=== PATIENT | female | born 1930 | race Caucasian/White ===

== ENCOUNTER 2017-02-14 08:13 | Inpatient (IN) ==
[2017-02-14] MEDS ORDERED: ONDANSETRON 4 MG/2 ML VIAL IV STA ×2 (08:39→11:22)
[2017-02-14] MEDS ORDERED: PANTOPRAZOLE 40 MG VIAL IV STA (08:39)
--- NOTE | 2017-02-14 08:42 | Emergency Department Note ---
Nany Chavez Gwan, am scribing for, and in the presence of, Pao Cardona DO 08:38 . IBrendan Debra, DO, personally performed the services described in this documentation, ascribed by Jassi Ayon in my presence, and it is both accurate and complete 841 . Arrival - Arrival Chief Complaint: GI Bleed/Rectal Stated Complaint: gi bleed ED Nursing Triage Note: c/o n/v onset saturday. upper gi bleed started this am Mode of Arrival: Stretcher Limitations: No Limitations Source: Patient, Old Records Reviewed, RN Notes Reviewed - History of Present Illness HPI Narrative: Pt is a 86 y/o female, with a hx of HTN, NIDDM, who presents to the ED with a c /o N/V with an onset 1 week ago. Patient continued to note that her sxs have began to worsen with in the last 2 days and that she has been having a bloody stool with onset this morning. This prompted her visit to the ED for further evaluation. Onset (ago): day(s) Consistency: constant Severity: moderate Allergies/Adverse Reactions: Allergies Allergy/AdvReac Type Severity Reaction Status Date / Time No Known Allergies Allergy Unverified 02/14/17 08:22 Review of System - Review of System 12 point system: reviewed and no additional remarkable complaints except as stated - Review of System Constitutional: Absent: chills, fever Eyes: Absent: discharge, vision change Head/Ears/Nose/Throat: Absent: earache, nasal drainage Respiratory: Absent: cough, wheezing Cardiovascular: Absent: chest pain Gastrointestinal: Present: as per HPI, nausea, vomiting, other (bloody stool) Genitourinary female: Absent: dysuria Musculoskeletal: Absent: arm pain, back pain, lower back pain, leg pain, neck pain Skin: Absent: rash, lesions Medical,Surgical,& Family Hx - Medical History Cardio: History of: Hypertension Endocrine: History of: Diabetes Mellitus (NIDDM) - Social History Smoking Status: Never smoker Frequency of Alcohol Use: None Type of Drug Use: None Exam Vital Signs: Vital Signs Temperature 98.0 F 02/14/17 08:14 Pulse Rate 114 H 02/14/17 08:14 Respiratory Rate 18 02/14/17 08:14 Blood Pressure 183/105 02/14/17 08:14 O2 Sat by Pulse Oximetry 98 04/27/17 08:14 - General General appearance: alert, in no apparent distress - Head Head exam: Present: atraumatic, normocephalic - Eye Eye exam: Present: normal appearance, PERRL, EOMI - ENT ENT exam: Present: normal oropharynx, mucous membranes moist, TM's normal bilaterally, normal external ear exam - Neck Neck exam: Present: full ROM, trachea midline. Absent: tenderness, meningismus , lymphadenopathy, thyromegaly - Chest Chest inspection: Present: symmetric chest wall rise. Absent: tenderness - Respiratory Respiratory exam: Present: normal lung sounds bilaterally. Absent: respiratory distress - Cardiovascular Cardiovascular exam: Present: murmur (Grade 1 systolic injection murmur) - Abdominal Exam Abdominal exam: Present: distention - Extremities Exam Extremities exam: Present: full ROM. Absent: tenderness, pedal edema, calf tenderness - Back Exam Back exam: Present: full ROM. Absent: tenderness - Neurological Exam Neurological exam: Present: alert, oriented X3, CN II-XII intact. Absent: motor sensory deficit - Psychiatric Psychiatric exam: Present: normal affect, normal mood - Skin Skin exam: Present: warm, dry, intact, normal color Results - Labs CBC & BMP: 02/14/17 09:30 02/14/17 09:30 Lab Results: I have reviewed the patients labs Labs: Laboratory Tests 02/14/17 02/14/17 08:56 09:18 b-Hydroxybutyric mmol/L 0.4 Urine pH 6.0 Ur Specific [place] 1.010 Urine Glucose (UA) >=500 Urine Ketones 5 Urine Urobilinogen < 2.0 H Urine RBC 1 Urine WBC <1 Ur Squamous Epith Cells Occasional Laboratory Tests 02/14/17 09:30 WBC 9.0 RBC 3.50 L Hgb 10.1 L Hct 31.9 L MCHC 31.7 L Plt Count 107 L Neut % (Auto) 76.1 H Lymph % (Auto) 17.0 L Laboratory Tests 02/14/17 02/14/17 09:30 09:30 Sodium 135 L Potassium 5.1 Chloride 104 Carbon Dioxide 21 Anion Gap 15.1 H BUN 47 H Creatinine 1.30 H BUN/Creatinine Ratio 36.00 H Glucose 267 H Total Bilirubin 1.10 H Albumin 3.2 L Globulin 4.1 H Albumin/Globulin Ratio 0.7 L Lipase 238.0 Blood Type A POSITIVE Antibody Screen Negative Laboratory Tests 02/14/17 09:30 Total Creatine Kinase 196 H CK-MB (CK-2) 2.4 Troponin I 0.121 H - Diagnostic Findings Procedure: Chest x-ray: report reviewed by me (No acute cardiopulmonary process is identified. ), CT Abdomen and Pelvis: report reviewed by me (1. Any luminal extravasation is not possible to determine secondary to lack of intravenous contrast. 2. Sigmoid diverticulosis without specific features of diverticulitis. Bowel wall in this segment of bowel is not well visulaized. 3. Bilateral renal cyst are suggested. Ultrasound will be useful for confirmation. 4. Cirrhotic feature of the liver demonstrated. 5. Coronary artery calcifications are prosent. )
[2017-02-14] MEDS ORDERED: ONDANSETRON 4 MG/2 ML VIAL ONE ×2 (08:54→11:21)
[2017-02-14 09:08] LABS: Apearance,Urine CLEAR (Clear); Bilirubin,Urine Negative (Negative); Blood, Urine Negative (Negative); Glucose,Urine (UA) >=500 mg/dL (Negative); Ketones,Urine 5 mg/dL (Negative); Nitrite,Urine Negative (Negative); Protein,Urine Negative; RBC,Urine 1 /HPF (0-4); Squamous Epithelial Cell,Urine Occasional /HPF (0-10); Urine Color Straw (Yellow); Urine Urobilinogen < 2.0 EU/DL (0.2-1.0); WBC,Urine <1 /HPF (0-6)
[2017-02-14] MEDS ORDERED: SODIUM CHLORIDE 0.9% 1,000 ML IV STA ×2 (09:19→11:20)
[2017-02-14] MEDS ORDERED: PANTOPRAZOLE 40 MG VIAL IV ONE (09:33)
--- NOTE | 2017-02-14 09:39 | EKG Report ---
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
[2017-02-14 09:42] LABS: Basophils % 0.4 % (0.0-0.8); Eosinophils % 0.1 % (0.00-10.9); Hematocrit 31.9 VOL% (35.7-47.0); Hemoglobin 10.1 GM/DL (12.0-16.0); Immature Granulocytes % 0.6 %; Immature Granulocytes Absolute 0.05 #; Lymphocytes # 1.5 10*3/uL (1.4-4.0); Mean Corpuscular HGB Conc 31.7 GM/DL (32-36); Mean Corpuscular Hemoglobin 29 PG (27-34); Mean Corpuscular Volume 91.1 FL (87-102); Monocytes # 0.5 10*3/uL (0.11-0.8); Monocytes % 5.8 % (1.7-12.7); Neutrophils # 6.9 10*3/uL (1.4-7.4); Neutrophils % 76.1 % (38.7-73.9); Platelet Count 107 T/CUMM (130-400); Red Cell Distribution Width 14.6 % (9.3-17.3)
[2017-02-14 10:12] LABS: Albumin 3.2 G/DL (3.4-5.0); Bilirubin,Total 1.1 MG/DL (0.2-1.0); Calcium 9.3 MG/DL (8.5-10.1); Osmolality,Calculated 290.1 MOS/KG (273-304); Potassium 5.1 MMOL/L (3.5-5.1); Total Protein 7.3 G/DL (6.4-8.3)
--- NOTE | 2017-02-14 10:22 | XRay Report ---
Referring Physician: Pao Cardona DO Exam: XR chest 1V portable Date: February 14, 2017 at 10:00 AM Reason: Shortness of breath Comparison: None Findings: The cardiac silhouette is normal in size. No focal consolidation, pneumothorax or pleural effusion is identified. No acute osseous process is seen. Impression: No acute cardiopulmonary process is identified. PROCEDURE INTERPRETED AT [facility] DEPARTMENT OF RADIOLOGY Final Report Signed by: Dr. Laney Lopez
[2017-02-14] MEDS ORDERED: LABETALOL 20 MG/4 ML SYRINGE IV STA (10:54)
[2017-02-14 10:55] LABS: Troponin I Only 0.121 NG/ML (0.00-0.045)
[2017-02-14] MEDS ORDERED: LABETALOL 20 MG/4 ML SYRINGE IV ONE (10:58)
--- NOTE | 2017-02-14 11:10 | CT Report ---
CT abdomen pelvis wo con Indication: GI bleed. Coffee-ground emesis. Comparison: None. Technique: CT of the abdomen and pelvis was performed without administration of intravenous contrast. The CT examination was performed using one or more of the following dose reduction techniques: Automatic exposure control, adjustment of the mA and kV according to patient size, use of acute or iterative reconstruction techniques. Findings: Incomplete evaluation of the abdomen secondary to lack of intravenous contrast. Assessment of bowel wall as well as evaluation for possible intraluminal extravasation is not possible. No acute findings are noted within the lower chest. Coronary artery calcifications are present. Calcification of the mitral valve annulus is moderate. Lower esophagus is grossly unremarkable. No gallstones are present. The liver demonstrates a nodular margin with no focal lesions clearly demonstrated. Spleen is grossly normal in size. Noncontrast enhanced appearance of the pancreas, adrenal glands, and kidneys demonstrate no acute findings. Each kidney contains a large hypoattenuating round to slightly oval lesions measuring up to 5.8 cm within the posterior right kidney and up to 7 cm transverse dimension anterior left kidney. These could reflect renal cysts. Further evaluation is limited secondary to lack of intravenous contrast. Diffuse intimal calcification of the aorta and iliac arteries is demonstrated. Numerous sigmoid diverticula are present. Urinary bladder is decompressed by Kovacs catheter. Dynamic compression screw within the left femoral neck is present. Otherwise, the imaged structures of the lower chest, liver, spleen, pancreas, adrenal glands, kidneys, aorta, inferior vena cava, stomach, bowel, and intrapelvic contents as well as bony structures soft tissues and musculature the body wall demonstrate no evidence of significant pathology. Impression: 1. Any luminal extravasation is not possible to determine secondary to lack of intravenous contrast. 2. Sigmoid diverticulosis without specific features of diverticulitis. Bowel wall in this segment of bowel is not well visualized. 3. Bilateral renal cysts are suggested. Ultrasound will be useful for confirmation. 4. Cirrhotic features of the liver demonstrated. 5. Coronary artery calcifications are present. 02/14/2017 11:03 AM PROCEDURE INTERPRETED AT [facility] DEPARTMENT OF RADIOLOGY Final Report Signed by: Dr. Marino Collins
[2017-02-14] MEDS ORDERED: HYDROmorphone 2 MG/1 ML VIAL IV STA (11:19)
[2017-02-14] MEDS ORDERED: HYDROmorphone 2 MG/1 ML VIAL ONE (11:22)
[2017-02-14] MEDS ORDERED: ZALEPLON 5 MG CAPSULE PO PRN (11:39)
[2017-02-14] MEDS ORDERED: ACETAMINOPHEN 325 MG TABLET PO PRN (11:39)
[2017-02-14] MEDS ORDERED: ONDANSETRON 4 MG/2 ML VIAL IV PRN (11:39)
--- NOTE | 2017-02-14 12:04 | Hospitalist History & Physical ---
<Boris Carrillo - Last Filed: 02/14/17 12:50> Assessment and Plan (1) GI bleed Status: Acute Assessment and plan: Admitted to monitored bed. IV fluids. Serial H and Hs. PT/INR repeat CBC in a.m. abdominal x-ray. consult GI. Continue to monitor patient Current Visit: Yes (2) Diabetes Status: Acute Assessment and plan: Accu-Cheks before meals at bedtime. Sliding scale insulin. Check A1c in a.m. clear liquid diet now but advance to diabetic as tolerated. Current Visit: Yes (3) Hypertension Status: Acute Assessment and plan: Restart home medications. Current Visit: Yes (4) Dehydration Status: Acute Assessment and plan: Gentle hydration. Current Visit: Yes History of Present Illness Chief complaint: hemataemesis History of present illness: Ms. Schaefer is a 86 year old female with a history of htn, cad, irregular heart rhythm, dm, anemia, gerd, and recurrent UTIs that presents to the ED via EMS with complaints of abdominal pain with nausea and vomiting. Pt is a poor historian and family is present at bedside. Pt. states that yesterday after dinner she began to experience abdominal pain. Patient states that she also began to feel sick on her stomach and vomited Patient states that the vomiting alarmed her because she normally does not vomit at all. She also states that the vomit had a foul odor and appeared to be very dark in color similar to coffee grounds. Patient's is at bedside and states that he saw the vomit. The patient went to be bed when she woke up this morning and began to vomit again and she knew that she needed to come in for evaluation. This morning she states that while at home the blood was bright red. This was confirmed by her and son/[id number] who are present at the bedside. The patient reports 4 total episodes of vomiting since yesterday evening. Patient denies fever, chills, hematuria, melena, or hematochezia. Pt' s did state that the pt was seen 4-[address] Hicks and pt had to have blood work drawn and low levels were discovered. He also stated that the patient had to have a procedure by Dr. Atkinson where "a mirror was stuck down her throat." Pt. is also seen by Dr. Benjamin Walsh of [facility]. Pt. stated that recent EKG changes were noted and Ranexa was stopped. The patient is not in any apparent distress in ED. H&H is 10.1/31.9. Patient will be admitted to the hospitalist service for further eval. GI will be consulted to help coordinate care. Home Medications Medication Instructions Recorded Confirmed Type Aspirin [Ecotrin] 81 mg PO QAM 02/14/17 02/14/17 History Docusate/Senna 50-8.6 [Senokot S] 1 tablet PO BEDTIME 02/14/17 02/14/17 History HYDROcodone/ACETAMIN 7.5-325 1 tablet PO TID PRN 02/14/17 02/14/17 History [[place] 7.5-325] Isosorbide Mononitrate [Isosorbide 60 mg PO QAM 02/14/17 02/14/17 History Mononitrate ER] Losartan/Hydrochlorothiazide 1 each PO DAILY 02/14/17 02/14/17 History [Losartan-Hctz 100-25 mg Tab] Metformin HCl 500 mg PO BID 02/14/17 02/14/17 History Metoprolol Tartrate Tab [Lopressor 50 mg PO BID 02/14/17 02/14/17 History Tab] Primidone 50 mg PO BEDTIME 02/14/17 02/14/17 History glipiZIDE [Glipizide] 10 mg PO BID 02/14/17 02/14/17 History Allergies Allergy/AdvReac Type Severity Reaction Status Date / Time No Known Allergies Allergy Unverified 02/14/17 08:22 Medical,Surgical,& Family Hx - Medical History Cardio: History of: Hypertension Psychological: No history of: Depression Endocrine: History of: Diabetes Mellitus (NIDDM) Genitourinary: History of: Recurring Urinary Tract Infections Gastrointestinal: History of: GERD Hematology: History of: Anemia Other: No history of: Cancer - Social History Smoking Status: Never smoker Frequency of Alcohol Use: None Type of Drug Use: None Marital Status: Lives With:: Spouse Functional capacity: uses cane/walker - Constitutional Constitutional: Present: fatigue, weakness - EENT Eyes: Absent: loss of vision Ears: Absent: decreased hearing Nose, mouth and throat: Absent: dysphagia, headache(s) - Cardiovascular Cardiovascular: Present: dyspnea on exertion. Absent: chest pain at rest - Respiratory Respiratory: Present: dyspnea on exertion. Absent: cough - Gastrointestinal Gastrointestinal: Present: abdominal pain, coffee ground emesis, nausea, vomiting. Absent: change in bowel habits, melena - Genitourinary Genitourinary: Absent: abnormal vaginal bleeding, difficulty urinating - Musculoskeletal Musculoskeletal: Absent: limited range of motion, muscle cramps - Neurological Neurological: Present: dizziness. Absent: confusion - Psychiatric Psychiatric: Absent: anxiety, confusion Exam - Constitutional Vitals: Period Temp Pulse Resp BP Sys/Morel Pulse Ox Last 24 Hr 98.0 F-98.0 F 114-114 18-18 183-183/105-105 98 General appearance: no acute distress, over weight - Head Head exam: Present: normal inspection, normocephalic - Eye Eye exam: Present: EOMI. Absent: scleral icterus Pupils: Present: MICHAELA. Absent: fixed - Neck Neck exam: Present: normal inspection. Absent: tenderness - Respiratory Respiratory exam: Present: clear to auscultation bilaterally. Absent: wheezes - Cardiovascular Cardiovascular exam: Present: tachycardia. Absent: systolic murmur - GI/Abdominal GI/Abdominal exam: Present: normal bowel sounds, distended, tenderness (lower abdomen), soft - Extremities Exam Extremities exam: Present: normal capillary refill, full ROM. Absent: edema - Neurological Exam Neurological exam: Present: alert, oriented X3 - Psychiatric Psychiatric exam: Present: normal affect, normal mood - Skin Skin exam: Present: normal color, warm, dry Results - Labs CBC & BMP: 02/14/17 09:30 02/14/17 09:30 Lab Results: I have reviewed the past 24 hour labs - EKG EKG shows: tachycardia <White,Paula R - Last Filed: 02/14/17 13:44> Assessment and Plan - Time spent with patient Time spent with patient: (Nothing acute) (1) GI bleed Status: Acute Assessment and plan: CT of abdomen shows sigmoid diverticulosis and some evidence of cirrhosis. Continue serial hemoglobin. IV Protonix and hold aspirin. Check coags due to cirrhosis Current Visit: Yes (2) Dehydration Status: Acute Assessment and plan: Gentle hydration with normal saline Current Visit: Yes (3) Diabetes Status: Acute Assessment and plan: Hold glipizide for now. Clear liquids Current Visit: Yes (4) Hypertension Status: Acute Assessment and plan: Start Coreg 6.25 mg p.o. twice daily, continue isosorbide mononitrate, hold diuretic for now Current Visit: Yes (5) Confusion Status: Acute Assessment and plan: Patient has evidence of cirrhosis on her CT. Check ammonia level. Current Visit: Yes History of Present Illness History of present illness: Ms. Schaefer is a 86 year old female seen and examined. History and physical reviewed and edited. In speaking with the he reports some dark tarry stools. With respect to her confusion he said she has been confused probably for the last 6 months. Medical,Surgical,& Family Hx - Surgical History Abdominal Surgeries: Surgical HX of: Colonoscopy Reproductive Surgeries: Surgical HX of;: Hysterectomy Orthopedic Surgeries: Surgical HX of;: Orthopedic Surgery - Family History Family History: Reports;: Family Diabetes Denies;: Family Cancer, Family Heart Disease, Family Stroke - Neurological Neurological: Absent: syncope - Psychiatric Psychiatric: Present: confusion. Absent: depression - Endocrine Endocrine: Present: fatigue. Absent: cold intolerance, heat intolerance - Hematologic/Lymphatic Hematologic/Lymphatic: Absent: easy bleeding, easy bruising Exam - Constitutional Vitals: Period Temp Pulse Resp BP Sys/Morel Pulse Ox Last 24 Hr 104 18 128/60 99 - ENT ENT exam: Present: normal exam, normal external ear exam - Neurological Exam Neurological exam: Present: reflexes normal. Absent: motor sensory deficit Results - Labs CBC & BMP: 02/14/17 09:30 02/14/17 09:30 - Diagnostic Findings Procedure: Chest x-ray: report reviewed by me (Nothing acute), CT Abdomen and Pelvis: report reviewed by me (sigmoid divert, cirrhosis )
--- NOTE | 2017-02-14 12:19 | Gastrointestinal Consult Note ---
Assessment and Plan (1) GI bleed Status: Acute Assessment and plan: 02/14-onset of dark coffee-ground emesis 3 on yesterday with associated abdominal pain, with no prior history of GI bleed or peptic ulcer disease. Prior endoscopy done at [place]. History of anemia with chronic iron replacement therapy. Check stool for occult blood, monitor serial H&H. Plan and addendum to follow by Dr Pearson. Current Visit: Yes History of Present Illness Chief complaint: GI bleed History of present illness: Ms. Schaefer is a 86 year old female who presented to the hospital with onset of coffee-ground emesis. Patient is a poor historian however her son and are at bedside and provide history. Patient is reported to not feel very well on yesterday and shortly after eating lunch she went to lay down. Later that evening and she came and told her that she had just vomited up a large amount of dark emesis. She continued not to feel well later that evening and skip supper as well. Her became concerned and brought her to the emergency room for further evaluation. Upon admission, patient had another episode of coffee-ground emesis. Patient is also reported to have recently had some dark tarry stools. She has noted to be on iron therapy in the past however patient's states he has decreased the amount of this that she takes due to it does cause constipation. He states that despite not taking this often her stool still remained dark. She denies any abdominal pain on yesterday as well as at this time. She denies any recent weight loss, fever or chills. Patient has no prior history of GI bleeding or peptic ulcer disease in the past. No reported NSAID use in the past. Patient has been followed in the past at [facility] by Dr. Francis where her last endoscopy was done. Patient's spouse states that her last endoscopy was in 2009 however he cannot recall any specific findings from this. He does state that she has had a colonoscopy attempted twice in the past several years without success but he cannot recall as to why. She also has a reported history of anemia and has been followed by Dr. Eubanks for this. Her last reported blood transfusion was in 2009. She takes a daily baby aspirin however no anticoagulants. She has a history of diabetes which patient's spouse states is fairly controlled. On admission, she had a CT of the abdomen without contrast done with findings of sigmoid diverticulosis with poorly visualized bowel wall and cirrhotic features of her liver. Hemoglobin is currently 10.1. BUN/creatinine ratio is 36. Patient's spouse states that she was told recently that she may have had a "light heart attack ". EKG pending at present. Home Medications Medication Instructions Recorded Confirmed Type Aspirin [Ecotrin] 81 mg PO QAM 02/14/17 02/14/17 History Docusate/Senna 50-8.6 [Senokot S] 1 tablet PO BEDTIME 02/14/17 02/14/17 History HYDROcodone/ACETAMIN 7.5-325 1 tablet PO TID PRN 02/14/17 02/14/17 History [[place] 7.5-325] Isosorbide Mononitrate [Isosorbide 60 mg PO QAM 02/14/17 02/14/17 History Mononitrate ER] Losartan/Hydrochlorothiazide 1 each PO DAILY 02/14/17 02/14/17 History [Losartan-Hctz 100-25 mg Tab] Metformin HCl 500 mg PO BID 02/14/17 02/14/17 History Metoprolol Tartrate Tab [Lopressor 50 mg PO BID 02/14/17 02/14/17 History Tab] Primidone 50 mg PO BEDTIME 02/14/17 02/14/17 History glipiZIDE [Glipizide] 10 mg PO BID 02/14/17 02/14/17 History Allergies Allergy/AdvReac Type Severity Reaction Status Date / Time No Known Allergies Allergy Unverified 02/14/17 08:22 Medical,Surgical,& Family Hx - Medical History Cardio: History of: Hypertension Psychological: No history of: Depression Endocrine: History of: Diabetes Mellitus (NIDDM) Gastrointestinal: History of: GERD Hematology: History of: Anemia - Social History Smoking Status: Never smoker Frequency of Alcohol Use: None Type of Drug Use: None 12 point system: reviewed and no additional remarkable complaints except as stated - Constitutional Constitutional: Present: as per HPI - EENT Eyes: Present: as per HPI Ears: Present: as per HPI Nose, mouth and throat: Present: as per HPI - Cardiovascular Cardiovascular: Present: as per HPI - Respiratory Respiratory: Present: as per HPI - Gastrointestinal Gastrointestinal: Present: as per HPI, melena, nausea, vomiting - Genitourinary Genitourinary: Present: as per HPI - Musculoskeletal Musculoskeletal: Present: as per HPI - Neurological Neurological: Present: as per HPI - Psychiatric Psychiatric: Present: as per HPI - Endocrine Endocrine: Present: as per HPI - Hematologic/Lymphatic Hematologic/Lymphatic: Present: as per HPI Exam - Constitutional Vitals: Period Temp Pulse Resp BP Sys/Morel Pulse Ox Last 24 Hr 98.0 F-98.0 F 114-114 18-18 183-183/105-105 98 General appearance: normal weight, no acute distress - Head Head exam: Present: normal inspection, normocephalic - Eye Eye exam: Present: other (Lids and conjunctive are unremarkable). Absent: scleral icterus - ENT ENT exam: Present: normal exam, normal oropharynx - Neck Neck exam: Present: normal inspection - Respiratory Respiratory exam: Present: clear to auscultation bilaterally. Absent: rales, rhonchi, wheezes - Cardiovascular Cardiovascular exam: Present: regular rate and rhythm. Absent: diastolic murmur , JVD, systolic murmur - GI/Abdominal GI/Abdominal exam: Present: normal bowel sounds, soft. Absent: ascites, distended, mass, organomegaly, tenderness - Extremities Exam Extremities exam: Present: normal inspection, full ROM - Back Exam Back exam: Present: normal inspection - Neurological Exam Neurological exam: Present: alert, oriented X3 - Psychiatric Psychiatric exam: Present: normal affect, normal mood - Skin Skin exam: Present: normal color, warm, dry Results - Labs CBC & BMP: 02/14/17 09:30 02/14/17 09:30 Lab Results: I have reviewed the past 24 hour labs - Diagnostic Findings Procedure: CT Abdomen and Pelvis: report reviewed by me
[2017-02-14] MEDS ORDERED: GLUCAGON 1 MG VIAL IM PRN (13:12)
[2017-02-14] MEDS ORDERED: DEXTROSE 50% 25 GM/50 ML VIAL IV PRN (13:12)
[2017-02-14 13:54] LABS: INR 1.2; PT Patient Result 12.6 SECS; Partial Thromboplastin Time 25.9 SECS (0-40)
[2017-02-14] MEDS ORDERED: SODIUM CHLORIDE 0.9% 1,000 ML IV SCH (14:00)
[2017-02-14] MEDS: CARVEDILOL 6.25 MG TABLET PO SCH ×2 (14:05→21:03)
[2017-02-14] MEDS: ISOSORBIDE MONONITRATE 60 MG TABLET PO SCH (14:05)
[2017-02-14 14:11] LABS: Hematocrit 31.4 VOL% (35.7-47.0); Hemoglobin 9.7 GM/DL (12.0-16.0)
[2017-02-14] MEDS: SODIUM CHLORIDE 0.9% 1,000 ML IV SCH (14:12)
[2017-02-14] MEDS: INSULIN LISPRO 100 UNIT/ML SUBCUT SCH ×2 (17:02→21:03)
[2017-02-14 19:43] LABS: Hematocrit 24.5 VOL% (35.7-47.0); Hemoglobin 7.8 GM/DL (12.0-16.0)
[2017-02-14] MEDS: PANTOPRAZOLE 40 MG VIAL IV SCH (21:02)
[2017-02-15 01:56] LABS: Calcium 8.7 MG/DL (8.5-10.1); Magnesium 1.4 MG/DL (1.8-2.4); Osmolality,Calculated 287.7 MOS/KG (273-304); Potassium 4.2 MMOL/L (3.5-5.1)
[2017-02-15] MEDS: SODIUM CHLORIDE 0.9% 1,000 ML IV SCH ×3 (02:19→18:03)
[2017-02-15 02:56] LABS: Hematocrit 24.1 VOL% (35.7-47.0); Hemoglobin 7.6 GM/DL (12.0-16.0)
--- NOTE | 2017-02-15 07:03 | Physician Query Form ---
CLICK EDIT DOCUMENT TO SELECT QUERY ANSWER --> OK --> SIGN Marie Collins RN, CCDS Certified Clinical User Experience Researcher W) [phone] (f) [phone] [email or web address] PROVIDERS: Make your selection(s) from the choices in EACH section by typing an "x" and enter comments in the comment section. Please use your independent medical judgment in providing your response. This request does not imply that any particular answer is desired or expected. CLINICAL INDICATORS: (Providers should not edit this section) The medical record indicates that the patient was admitted with GI bleeding, 4+ positive for occult blood, HH on admission of 10.1/31.9 that has fallen to 7.6/ 24.1. Based on the above, could you clarify which of the following conditions you are evaluating, treating, and/or monitoring? (x ) Blood loss anemia ( x) acute ( ) chronic ( ) acute on chronic ( ) Acute blood loss anemia on baseline chronic anemia ( ) Acute blood loss anemia as a complication of a procedure ( ) Iron deficiency anemia not associated with blood loss ( ) Dilutional anemia due to IV fluids ( ) Anemia due to chemotherapy ( ) Anemia due to neoplastic disease ( ) Anemia due to chronic kidney disease ( ) Pernicious anemia ( ) Aplastic anemia ( ) Hemolytic anemia ( ) immune ( ) non-immune - please specify cause: ( ) Anemia due to other condition, please specify: ( ) Clinically unable to determine COMMENTS: Use of terms such as suspected, likely, or probable (associated with a specific diagnosis that is being evaluated, monitored, or treated as if it exists) are acceptable and can be restated in the discharge summary if not ruled out. MTDD
[2017-02-15 08:10] LABS: Hematocrit 23.5 VOL% (35.7-47.0); Hemoglobin 7.5 GM/DL (12.0-16.0)
[2017-02-15] MEDS: INSULIN LISPRO 100 UNIT/ML SUBCUT SCH ×4 (08:39→21:26)
[2017-02-15] MEDS: CARVEDILOL 6.25 MG TABLET PO SCH (09:08)
[2017-02-15] MEDS: PANTOPRAZOLE 40 MG VIAL IV SCH ×2 (09:08→21:32)
[2017-02-15] MEDS ORDERED: SODIUM CHLORIDE 0.9% 250 ML IV PRN (09:38)
[2017-02-15] MEDS: ISOSORBIDE MONONITRATE 60 MG TABLET PO SCH (11:03)
--- NOTE | 2017-02-15 12:03 | Hospitalist Progress Note ---
Assessment and Plan (1) GI bleed Status: Acute Assessment and plan: Transfuse 2 units packed red blood cells, EGD today, continue Protonix Current Visit: Yes (2) Dehydration Status: Acute Assessment and plan: continue normal saline, blood pressure is down due to blood loss, transfuse 2 units of prbc Current Visit: Yes (3) Diabetes Status: Acute Assessment and plan: BS high, Hold glipizide until restarts on clear liquids Current Visit: Yes (4) Hypertension Status: Acute Assessment and plan: patient's blood pressure is low today. will hold Coreg and isosorbide mononitrate Current Visit: Yes (5) Confusion Status: Acute Assessment and plan: Patient has evidence of cirrhosis on her CT and her ammonia level is high, has component of dementia, will start lactulose Current Visit: Yes Hospitalist: Subjective Interval history: Patient's hemoglobin continues to drift down. She will receive 2 units packed red blood cells and an EGD today. Patient's reported she was very combative last night. I told him that she does have dementia and it will worsen with illness and change of environment. at bedside. Exam - Constitutional Vitals: Period Temp Pulse Resp BP Sys/Morel Pulse Ox Last 24 Hr 97.5 F-99.3 F 63-131 16-20 86-168/36-84 92-99 Exam: Heart Rate-[RRR] Lungs-[CTAB] GI-[+bs soft, epigastric tenderness, obese] Ext-[no edema] Neuro [Motor 5/5], [alert and oriented times 1] psych [pleasant mood and flat affect] General [no acute distress] Results - Labs CBC & BMP: 02/15/17 07:20 02/15/17 01:25 Lab Results: I have reviewed the past 24 hour labs Labs: 4+ occult blood in stools
[2017-02-15] MEDS ORDERED: MAGNESIUM SULF RIDER 4 GM in PREMIX 1 EACH IV ONE (12:04)
--- NOTE | 2017-02-15 13:56 | History and Physical Update ---
History and Physical Update - History and Physical H&P was reviewed, the patient examined and there: are no changes in the patients condition since last H&P was completed. - Physical Exam Mental Status: alert and oriented Heart: regular rate and rhythm Lung: clear to auscultation Abdomen: within normal limits Vitals: within normal limits
--- NOTE | 2017-02-15 14:08 | Operative Note ---
Date of procedure: 02/15/17 Pre-op diagnosis: Upper GI bleed/hematemesis Procedure: Procedure: Esophagogastroduodenoscopy Brief clinical abstract: Patient is an 86-year-old female admitted after several episodes of coffee-ground emesis. She has required transfusion after presenting with anemia. Hemodynamics have been stable. She had CT of her upper abdomen with cirrhotic appearing liver. Indication for procedure: Hematemesis Endoscopic findings:[After informed consent was obtained, the patient was placed in the left lateral decubitus position. The gastroscope was inserted in the upper esophagus under direct vision with no resistance encountered. Esophageal mucosa appeared normal down the level 22 cm below incisors. Distal to this were 4 columns of grade I-II sized esophageal varices extending to the squamocolumnar junction with no bleeding stigmata. The endoscope was advanced in the stomach which was carefully examined including retroflexed view of the cardia and fundus. Patient has prominence of the area gastricae pattern throughout the stomach and scattered subepithelial hemorrhage in the proximal and mid stomach consistent with portal gastropathy. No blood was noted in the stomach. No varices were seen in the stomach. The pyloric channel, duodenal bulb, second and third portion of the duodenum appeared normal. The endoscope was withdrawn and patient appeared to tolerate the procedure well. Impression: #1 esophageal varices, grade I-II size with no bleeding stigmata #2 severe portal gastropathy Recommendations: Would observe for another 48 hours and could discharge if stable. Would place on nonselective beta-isrrael for variceal bleeding prophylaxis. Anesthesia: MAC Surgeon / Physician: Franco Pearson Estimated blood loss: none Specimens: none sent Condition: stable Disposition: post procedure unit Results - Labs CBC & BMP: 02/15/17 07:20 02/15/17 01:25 Discharge Plan - Discharge Medications No Action Docusate/Senna 50-8.6 [Senokot S] 1 tablet PO BEDTIME Aspirin [Ecotrin] 81 mg PO QAM Primidone 50 mg PO BEDTIME Losartan/Hydrochlorothiazide [Losartan-Hctz 100-25 mg Tab] 1 each PO DAILY Isosorbide Mononitrate [Isosorbide Mononitrate ER] 60 mg PO QAM Metformin HCl 500 mg PO BID glipiZIDE [Glipizide] 10 mg PO BID HYDROcodone/ACETAMIN 7.5-325 [[place] 7.5-325] 1 tablet PO TID PRN PRN Reason: Pain Metoprolol Tartrate Tab [Lopressor Tab] 50 mg PO BID - Follow Up or Referral - Forms/Instructions
--- NOTE | 2017-02-15 14:12 | Anesthesia Post-Op ---
Anesthesia Post OP - Post Ansesthetic Evaluation Patient seen in post op: Yes Resp: within normal limits CV: within normal limits Mental: within normal limits Temp: within normal limits [id number]: within normal limits Nausea and Vomiting: within normal limits Pain: within normal limits
[2017-02-15] MEDS: LACTULOSE 20 GM/30 ML UDCUP PO SCH ×3 (15:44→21:28)
[2017-02-15] MEDS: PROPRANOLOL 20 MG TABLET PO SCH (21:29)
[2017-02-16 01:14] LABS: Basophils % 0.4 % (0.0-0.8); Eosinophils # 0.3 10*3/uL (0.0-0.87); Eosinophils % 3.9 % (0.00-10.9); Hematocrit 27.5 VOL% (35.7-47.0); Hemoglobin 9.1 GM/DL (12.0-16.0); Immature Granulocytes % 0.3 %; Immature Granulocytes Absolute 0.02 #; Lymphocytes # 2.2 10*3/uL (1.4-4.0); Lymphocytes % 32.4 % (21.3-54.2); Mean Corpuscular HGB Conc 33.1 GM/DL (32-36); Mean Corpuscular Hemoglobin 30 PG (27-34); Mean Corpuscular Volume 89.3 FL (87-102); Mean Platelet Volume 9.9 FL (9.6-12.0); Monocytes # 0.5 10*3/uL (0.11-0.8); Monocytes % 7.7 % (1.7-12.7); Neutrophils # 3.8 10*3/uL (1.4-7.4); Neutrophils % 55.3 % (38.7-73.9); Platelet Count 72 T/CUMM (130-400); Red Blood Count 3.08 MC/CUMM (3.8-5.5); Red Cell Distribution Width 14.8 % (9.3-17.3); White Blood Count 6.9 T/CUMM (4-12)
[2017-02-16 01:38] LABS: Calcium 8.6 MG/DL (8.5-10.1); Magnesium 2.7 MG/DL (1.8-2.4); Osmolality,Calculated 288.3 MOS/KG (273-304); Potassium 4.1 MMOL/L (3.5-5.1)
[2017-02-16 01:42] LABS: % Iron Saturation 27.5 % (18-50); Ferritin 111.3 ng/ml (8-252)
[2017-02-16 02:00] LABS: Band Neutrophils 2 % (0-10); Eosinophils 1 % (0-10); Lymphocytes 26 % (20-55); Myelocytes 2 %; Segmented Neutrophils 68 % (50-85); Total Cells Counted 100
[2017-02-16 02:01] LABS: Anisocytosis 1+; Platelet Estimate Decreased
[2017-02-16 07:22] LABS: Hepatitis A Ab IgM Quant 0.13 Index; Hepatitis A Ab IgM Result Negative (Negative); Hepatitis B Core IgM Quant 0.15 Index; Hepatitis B Core IgM Result Negative (Negative); Hepatitis B Surface Ag Quant 0.22 Index; Hepatitis B Surface Ag Result Negative (Negative); Hepatitis C Virus Ab Result Negative (Negative)
[2017-02-16] MEDS: PROPRANOLOL 20 MG TABLET PO SCH ×2 (09:09→21:07)
[2017-02-16] MEDS: INSULIN LISPRO 100 UNIT/ML SUBCUT SCH ×4 (09:09→21:06)
[2017-02-16] MEDS: PANTOPRAZOLE 40 MG VIAL IV SCH ×2 (09:09→21:10)
[2017-02-16] MEDS: LACTULOSE 20 GM/30 ML UDCUP PO SCH ×5 (09:11→21:07)
--- NOTE | 2017-02-16 10:14 | Hospitalist Progress Note ---
Assessment and Plan (1) Acute blood loss anemia Status: Acute Assessment and plan: Due to GI bleed, hemoglobin stable Current Visit: Yes (2) GI bleed Status: Acute Assessment and plan: secondary to severe portal gastropathy and esophageal varices due to cirrhosis, hgb stable, advance diet Current Visit: Yes (3) Dehydration Status: Acute Assessment and plan: resolved Current Visit: Yes (4) Diabetes Status: Acute Assessment and plan: resume glipizide once a day instead of twice a day. Would not use metformin due to cirrhosis Current Visit: Yes (5) Hypertension Status: Acute Assessment and plan: Responding well to propranolol Current Visit: Yes (6) Confusion Status: Acute Assessment and plan: Due to elevated ammonia Current Visit: Yes (7) Cirrhosis Status: Acute Assessment and plan: May be secondary to Louis. Increase lactulose as ammonia is rising Current Visit: Yes Hospitalist: Subjective Interval history: Patient sleeping soundly in her bed. She only picked about twice yesterday. We will increase her lactulose to 4 times a day. Discussed the cirrhosis with her . He was unaware that she had cirrhosis. Hemoglobin more stable today. will decide if she needs to go to rehab. Asked for some medication to control her leaky bladder. I will start Vesicare. reports patient walks with a walker and is on oxygen at night. Patient never smoked but was around secondhand smoke. Exam - Constitutional Vitals: Period Temp Pulse Resp BP Sys/Morel Pulse Ox Last 24 Hr 96.2 F-99.6 F 87-98 14-20 93-147/46-66 94-100 Exam: Heart Rate-[RRR] Lungs-[CTAB] GI-[+bs soft, NT] Ext-[no edema] Neuro sleeping psych sleeping General [no acute distress] Results - Labs CBC & BMP: 02/16/17 00:58 02/16/17 00:58 Lab Results: I have reviewed the past 24 hour labs
[2017-02-16] MEDS ORDERED: glipiZIDE 10 MG TABLET PO SCH (10:30)
[2017-02-16] MEDS: SOLIFENACIN 5 MG TABLET PO SCH (10:45)
--- NOTE | 2017-02-16 15:59 | Gastrointestinal Progress Note ---
Assessment and Plan (1) Acute blood loss anemia Status: Acute Assessment and plan: 02/16 stable with no sign of further bleeding. No clear cause for her cirrhosis to this point. She and her state again she has no history of alcohol use. Viral hepatitis markers and screening for hemochromatosis negative. This may be fatty liver/Louis related. Would watch another day or 2 for signs of further bleeding. Continue beta-isrrael for portal hypertension management. Continue lactulose therapy. Current Visit: Yes Gastroenterology - PN: Subj Interval history: Patient with no further bleeding noted. Hemoglobin 9.1 after 2 units packed red blood cells. She has been more alert this afternoon after a couple of bowel movements with lactulose therapy started. Viral hepatitis markers and iron stores negative for etiology of chronic liver disease. Exam (Progress Note) - Constitutional Vitals: Period Temp Pulse Resp BP Sys/Morel Pulse Ox Last 24 Hr 96.2 F-99.0 F 85-98 16-20 113-153/51-67 92-100 General appearance: no acute distress, over weight - Head Head exam: Present: normocephalic, atraumatic - Eye Eye exam: Present: EOMI. Absent: scleral icterus - Respiratory Respiratory exam: Present: clear to auscultation bilaterally. Absent: wheezes - Cardiovascular Cardiovascular exam: Present: regular rate and rhythm. Absent: gallop, rubs - GI/Abdominal GI/Abdominal exam: Present: normal bowel sounds, soft. Absent: distended, tenderness - Extremities Exam Extremities exam: Absent: calf tenderness, edema - Neurological Exam Neurological exam: Present: alert, oriented X3, CN II-XII intact - Psychiatric Psychiatric exam: Present: normal affect, normal mood - Skin Skin exam: Present: warm Results - Labs CBC & BMP: 02/16/17 00:58 02/16/17 00:58 Lab Results: I have reviewed the past 24 hour labs
[2017-02-17 04:32] LABS: Basophils % 0.3 % (0.0-0.8); Eosinophils # 0.4 10*3/uL (0.0-0.87); Hemoglobin 9.2 GM/DL (12.0-16.0); Immature Granulocytes % 0.3 %; Immature Granulocytes Absolute 0.02 #; Lymphocytes # 1.9 10*3/uL (1.4-4.0); Lymphocytes % 24.5 % (21.3-54.2); Mean Corpuscular HGB Conc 32.9 GM/DL (32-36); Mean Corpuscular Hemoglobin 30 PG (27-34); Mean Corpuscular Volume 90.3 FL (87-102); Mean Platelet Volume 10.5 FL (9.6-12.0); Monocytes # 0.5 10*3/uL (0.11-0.8); Monocytes % 6.1 % (1.7-12.7); Neutrophils # 4.8 10*3/uL (1.4-7.4); Neutrophils % 63.8 % (38.7-73.9); Red Cell Distribution Width 14.8 % (9.3-17.3); White Blood Count 7.6 T/CUMM (4-12)
[2017-02-17 04:38] LABS: Platelet Count 81 T/CUMM (130-400)
[2017-02-17 04:58] LABS: Calcium 8.8 MG/DL (8.5-10.1); Magnesium 1.8 MG/DL (1.8-2.4); Osmolality,Calculated 284.3 MOS/KG (273-304); Potassium 4.1 MMOL/L (3.5-5.1)
[2017-02-17 05:24] LABS: Anisocytosis 1+; Platelet Estimate Decreased
[2017-02-17] MEDS ORDERED: glipiZIDE 10 MG TABLET PO SCH (08:00)
[2017-02-17] MEDS: SOLIFENACIN 5 MG TABLET PO SCH (08:46)
[2017-02-17] MEDS: PROPRANOLOL 20 MG TABLET PO SCH ×2 (08:47→20:57)
[2017-02-17] MEDS: LACTULOSE 20 GM/30 ML UDCUP PO SCH ×2 (08:47→20:57)
[2017-02-17] MEDS: PANTOPRAZOLE 40 MG VIAL IV SCH ×2 (08:47→20:56)
[2017-02-17] MEDS: INSULIN LISPRO 100 UNIT/ML SUBCUT SCH ×4 (08:47→20:56)
[2017-02-17] MEDS ORDERED: FUROSEMIDE 40 MG/4 ML VIAL IV SCH (10:00)
[2017-02-17] MEDS ORDERED: FUROSEMIDE 40 MG/4 ML VIAL IV ONE (10:00)
[2017-02-17] MEDS: amLODIPine 10 MG TABLET PO SCH (10:30)
[2017-02-17] MEDS: methylPREDNISolone SOD SUC 40 MG/1 ML VIAL IV SCH ×2 (10:30→18:14)
[2017-02-17] MEDS: ALBUTEROL/IPRATROPIUM 3 ML NEB RESP TX SCH ×4 (11:13→23:56)
--- NOTE | 2017-02-17 11:53 | Hospitalist Progress Note ---
Assessment and Plan (1) Acute blood loss anemia Status: Acute Assessment and plan: resolved hemoglobin stable Current Visit: Yes (2) GI bleed Status: Acute Assessment and plan: secondary to severe portal gastropathy and esophageal varices due to cirrhosis, hgb stable, advance diet Current Visit: Yes (3) Dehydration Status: Acute Assessment and plan: resolved Current Visit: Yes (4) Diabetes Status: Acute Assessment and plan: Increase glipizide to twice a day as blood sugars are not controlled. Would continue to avoid metformin due to cirrhosis Current Visit: Yes (5) Hypertension Status: Acute Assessment and plan: Not controlled. Increase propranolol to 40 mg twice daily and add Norvasc Current Visit: Yes (6) Confusion Status: Acute Assessment and plan: Resolved, ammonia level down to 42, decrease lactulose. Current Visit: Yes (7) Cirrhosis Status: Acute Assessment and plan: May be secondary to Louis. Stable Current Visit: Yes (8) Shortness of breath Status: Acute Assessment and plan: May be due to IV fluids. Hep-Lock fluids and give one-time dose of Lasix. Duo nebs ordered, ABG and chest x-ray ordered. Current Visit: Yes Hospitalist: Subjective Interval history: No further bleeding noted. Patient was extremely short of breath today. She has been up all night due to diarrhea. Mentally she was more alert than she has been since admission. Her ammonia levels down to 42. Her son was at bedside and had several questions about her cirrhosis. We will see how she does with physical therapy. The plan is for her to go home with home health and home PT. Exam - Constitutional Vitals: Period Temp Pulse Resp BP Sys/Morel Pulse Ox Last 24 Hr 96.4 F-98.5 F 76-104 12-24 146-192/63-81 92-99 Exam: Heart Rate-[RRR] Lungs-[diminished ] GI-[+bs soft, NT] Ext-[no edema] Neuro alert and oriented 3, motor 5 out of 5 psych depressed mood and affect General [mild acute distress due to breathing] Results - Labs CBC & BMP: 02/17/17 02:47 02/17/17 02:47 Lab Results: I have reviewed the past 24 hour labs
[2017-02-17 12:18] LABS: ABG Base Excess -2.3 MMOL/L (-2.5-2.5); ABG HCO3 22.4 MMOL/L (20-26); ABG Oxygen Saturation 95.3 % (95-100); ABG PCO2 35.8 MM HG (35-48); ABG PH 7.397 (7.35-7.45); ABG PO2 73.4 MM HG (80-95); ABG TCO2 19.8 MMOL/L (23-27)
--- NOTE | 2017-02-17 12:33 | XRay Report ---
Exam: XR chest 1V portable Indication: Shortness of breath Comparison study: 02/14/2017 Findings: Cardiothymic silhouette remains some contours appear stable from prior. Mild enlargement of the cardiac silhouette is similar. There is slight worsening of central perihilar and basilar interstitial and airspace opacities. Upper lungs appear clear. The pulmonary vasculature appears slightly engorged when compared to prior. There is no pneumothorax. Small bilateral pleural effusions are also suspected. Impression: Findings suggestive of developing interstitial edema with basilar atelectasis and trace pleural effusions. PROCEDURE INTERPRETED AT [facility] DEPARTMENT OF RADIOLOGY Final Report Signed by: Diomedes Woodall
--- NOTE | 2017-02-17 13:15 | Gastrointestinal Progress Note ---
Assessment and Plan (1) Acute blood loss anemia Status: Acute Assessment and plan: 02/16 stable with no sign of further bleeding. No clear cause for her cirrhosis to this point. She and her state again she has no history of alcohol use. Viral hepatitis markers and screening for hemochromatosis negative. This may be fatty liver/Louis related. Would watch another day or 2 for signs of further bleeding. Continue beta-isrrael for portal hypertension management. Continue lactulose therapy. 02/17 86-year-old female with cirrhosis and recent GI bleeding felt to be related to portal gastropathy appears stable from GI/liver standpoint. Hemoglobin is stable. Could probably discharge tomorrow from GI standpoint. Continue lactulose titrated to 2-3 stools per day. Current Visit: Yes Gastroenterology - PN: Subj Interval history: Patient had some increased shortness of breath overnight which has improved with IV Lasix. No complaint of abdominal distention. No further GI bleeding noted. Exam (Progress Note) - Constitutional Vitals: Period Temp Pulse Resp BP Sys/Morel Pulse Ox Last 24 Hr 96.4 F-99.8 F 76-104 12-24 127-192/63-92 92-99 General appearance: no acute distress - Respiratory Respiratory exam: Present: rales (Few rales in bases bilaterally) - Cardiovascular Cardiovascular exam: Present: regular rate and rhythm - GI/Abdominal GI/Abdominal exam: Present: normal bowel sounds, soft. Absent: distended, tenderness - Neurological Exam Neurological exam: Present: alert, oriented X3, CN II-XII intact Results - Labs CBC & BMP: 02/17/17 02:47 02/17/17 02:47 Lab Results: I have reviewed the past 24 hour labs
[2017-02-17] MEDS: glipiZIDE 10 MG TABLET PO SCH (16:35)
[2017-02-18] MEDS: methylPREDNISolone SOD SUC 40 MG/1 ML VIAL IV SCH ×3 (02:15→16:55)
[2017-02-18] MEDS: ALBUTEROL/IPRATROPIUM 3 ML NEB RESP TX SCH ×6 (03:23→23:40)
[2017-02-18 05:36] LABS: Hematocrit 27.9 VOL% (35.7-47.0); Hemoglobin 9.2 GM/DL (12.0-16.0); Immature Granulocytes % 0.5 %; Immature Granulocytes Absolute 0.04 #; Lymphocytes # 1.1 10*3/uL (1.4-4.0); Lymphocytes % 13.8 % (21.3-54.2); Mean Corpuscular Hemoglobin 30 PG (27-34); Mean Corpuscular Volume 89.4 FL (87-102); Mean Platelet Volume 10.4 FL (9.6-12.0); Monocytes # 0.1 10*3/uL (0.11-0.8); Monocytes % 1.4 % (1.7-12.7); Neutrophils # 6.7 10*3/uL (1.4-7.4); Neutrophils % 84.3 % (38.7-73.9); Platelet Count 81 T/CUMM (130-400); Red Blood Count 3.12 MC/CUMM (3.8-5.5); Red Cell Distribution Width 14.6 % (9.3-17.3)
[2017-02-18 06:32] LABS: Band Neutrophils 1 % (0-10); Lymphocytes 15 % (20-55); Segmented Neutrophils 80 % (50-85); Total Cells Counted 100
[2017-02-18 06:33] LABS: Hypochromasia 1+; Microcytosis 1+; Platelet Estimate Decreased
[2017-02-18] MEDS: amLODIPine 10 MG TABLET PO SCH (09:01)
[2017-02-18] MEDS: PANTOPRAZOLE 40 MG VIAL IV SCH ×2 (09:01→21:09)
[2017-02-18] MEDS: PROPRANOLOL 20 MG TABLET PO SCH ×2 (09:01→21:08)
[2017-02-18] MEDS: glipiZIDE 10 MG TABLET PO SCH ×2 (09:01→16:47)
[2017-02-18] MEDS: LACTULOSE 20 GM/30 ML UDCUP PO SCH ×2 (09:02→21:09)
[2017-02-18] MEDS: INSULIN LISPRO 100 UNIT/ML SUBCUT SCH ×4 (09:02→21:09)
[2017-02-18] MEDS: SOLIFENACIN 5 MG TABLET PO SCH (09:06)
--- NOTE | 2017-02-18 09:26 | Gastrointestinal Progress Note ---
Assessment and Plan (1) GI bleed Status: Acute Assessment and plan: 02/18-hemoglobin stable at 9.2. No overt bleeding. Ammonia 55, more alert today. Plan an addendum to follow by Dr. Pearson. 02/14-onset of dark coffee-ground emesis 3 on yesterday with associated abdominal pain, with no prior history of GI bleed or peptic ulcer disease. Prior endoscopy done at [place]. History of anemia with chronic iron replacement therapy. Check stool for occult blood, monitor serial H&H. Plan and addendum to follow by Dr Pearson. Current Visit: Yes Gastroenterology - PN: Subj Interval history: CC: Anemia Patient is seen awake alert sitting on side of bed with spouse at side. States she is feeling better today. She is more oriented and alert. She is reported to have a good appetite with good intake at meals over the weekend. No reports of overt bleeding seen. Denies any further nausea or vomiting. Denies abdominal pain. Ammonia level is up slightly today at 55. She has not had a bowel movement since yesterday afternoon. Hemoglobin is stable at 9.2. ROS: Denies shortness of breath or chest pain Exam (Progress Note) - Constitutional Vitals: Period Temp Pulse Resp BP Sys/Morel Pulse Ox Last 24 Hr 97.4 F-99.8 F 76-102 17-22 122-144/58-92 92-99 General appearance: normal weight, no acute distress - Head Head exam: Present: normal inspection, normocephalic - Eye Eye exam: Present: other (Lids and conjunctive are unremarkable). Absent: scleral icterus - ENT ENT exam: Present: normal exam, normal oropharynx - Neck Neck exam: Present: normal inspection - Respiratory Respiratory exam: Present: clear to auscultation bilaterally. Absent: rales, rhonchi, wheezes - Cardiovascular Cardiovascular exam: Present: regular rate and rhythm. Absent: diastolic murmur , JVD, systolic murmur - GI/Abdominal GI/Abdominal exam: Present: normal bowel sounds, soft. Absent: ascites, distended, mass, organomegaly, tenderness - Extremities Exam Extremities exam: Present: normal inspection, full ROM - Back Exam Back exam: Present: normal inspection - Neurological Exam Neurological exam: Present: alert, oriented X3 - Psychiatric Psychiatric exam: Present: normal affect, normal mood - Skin Skin exam: Present: normal color, warm, dry Results - Labs CBC & BMP: 02/18/17 04:48 02/17/17 02:47 Lab Results: I have reviewed the past 24 hour labs
--- NOTE | 2017-02-18 10:51 | Discharge Summary ---
Hospital Course - Hospital Course Hospital Course: This is a very pleasant 86 year old female that presented to the ED at [facility] on 02/14 with a chief compliant coffee-ground emesis. At the time of presentation, her son and served as historians. They reported a medical history significant for hypertension, diabetes mellitus, chronic anemia, and chronic urinary tract infections. Per family report, the onset of symptoms started on the day prior to presentation. She reportedly told her family that did not feel well shortly after eating lunch she went to lay down. Later that evening and she came and told her that she had just vomited up a large amount of dark emesis. Her became concerned and brought her to the emergency room for further evaluation. Upon admission, patient had another episode of coffee-ground emesis. In addition , the family reported that the patient has experienced some dark tarry stools. The family reported no prior history of GI bleeding, peptic ulcer disease, nor recent NSAID use. The family reported that the patient has had chronic anemia; in which she has undergone both colonoscopy and EGD in the past with benign findings. CT of the abdomen and pelvis revealed sigmoid diverticulosis with poorly visualized bowel wall and cirrhotic features of her liver. She was subsequently admitted under the hospitalist services for further evaluation. A GI consult was requested. The patient was seen and evaluated by Dr. Pearson. On 02/15, the patient underwent EGD which was significant for esophageal varices and severe portal gastropathy. She was started on Lactulose and beta-blockers were started for portal hypertension. The patient has experienced no significant overnight events ; no further episodes of hematemesis noted. She is hemodynamically stable, her hemoglobin and hematocrit are 9.2 and 27.9. Today, we feel that she is appropriate for discharge home with follow-up with her PCP and GI as directed. Discharge Plan - Discharge Medications No Action Docusate/Senna 50-8.6 [Senokot S] 1 tablet PO BEDTIME Aspirin [Ecotrin] 81 mg PO QAM Primidone 50 mg PO BEDTIME Losartan/Hydrochlorothiazide [Losartan-Hctz 100-25 mg Tab] 1 each PO DAILY Isosorbide Mononitrate [Isosorbide Mononitrate ER] 60 mg PO QAM Metformin HCl 500 mg PO BID glipiZIDE [Glipizide] 10 mg PO BID HYDROcodone/ACETAMIN 7.5-325 [[place] 7.5-325] 1 tablet PO TID PRN PRN Reason: Pain Metoprolol Tartrate Tab [Lopressor Tab] 50 mg PO BID - Follow Up or Referral - Forms/Instructions Exam - Constitutional Vitals: Period Temp Pulse Resp BP Sys/Morel Pulse Ox Last 24 Hr 97.4 F-99.8 F 76-102 17-22 122-144/58-92 92-99 Discharge Results Procedures and tests throughout hospitalization: Pending Orders 02/14/17 15:15 Occult Blood, Stool Stat 02/15/17 00:30 Occult Blood, Stool Routine 02/19/17 04:00 Ammonia IN AM Labs on day of discharge: Labs from last 24 hours 02/18/17 02/18/17 02/18/17 07:42 04:48 04:48 WBC 8.0 RBC 3.12 L Hgb 9.2 L Hct 27.9 L MCV 89.4 MCH 30 MCHC 33.0 RDW 14.6 Plt Count 81 L MPV 10.4 Neut % (Auto) 84.3 H Lymph % (Auto) 13.8 L Union % (Auto) 1.4 L Eos % (Auto) 0.0 Baso % (Auto) 0.0 Neut # (Auto) 6.7 Lymph # (Auto) 1.1 L [place] # (Auto) 0.1 L Eos # (Auto) 0.0 Baso # (Auto) 0.0 Total Counted 100 Immature Gran % 0.5 Nucleated RBC % 0.0 Immature Gran # 0.04 Segmented Neutrophils 80 Band Neutrophils 1 Lymphocytes 15 L Monocytes 4 Nucleated RBCs # 0.00 Platelet Estimate Decreased Hypochromasia 1+ Microcytosis 1+ ABG pH ABG pCO2 ABG pO2 ABG HCO3 ABG Total CO2 ABG O2 Saturation ABG Base Excess POC Glucose 358 H Ammonia 55 H ABDON Screen Hepatitis A IgM Ab Hep Bs Antigen Hep B Core IgM Ab Hepatitis C Antibody 02/17/17 02/17/17 02/17/17 20:34 18:39 15:56 WBC RBC Hgb Hct MCV MCH MCHC RDW Plt Count MPV Neut % (Auto) Lymph % (Auto) Union % (Auto) Eos % (Auto) Baso % (Auto) Neut # (Auto) Lymph # (Auto) Union # (Auto) Eos # (Auto) Baso # (Auto) Total Counted Immature Gran % Nucleated RBC % Immature Gran # Segmented Neutrophils Band Neutrophils Lymphocytes Monocytes Nucleated RBCs # Platelet Estimate Hypochromasia Microcytosis ABG pH ABG pCO2 ABG pO2 ABG HCO3 ABG Total CO2 ABG O2 Saturation ABG Base Excess POC Glucose 390 H 422 H 444 H Ammonia ABDON Screen Hepatitis A IgM Ab Hep Bs Antigen Hep B Core IgM Ab Hepatitis C Antibody 02/17/17 02/17/17 02/16/17 12:15 11:16 00:59 WBC RBC Hgb Hct MCV MCH MCHC RDW Plt Count MPV Neut % (Auto) Lymph % (Auto) Union % (Auto) Eos % (Auto) Baso % (Auto) Neut # (Auto) Lymph # (Auto) Union # (Auto) Eos # (Auto) Baso # (Auto) Total Counted Immature Gran % Nucleated RBC % Immature Gran # Segmented Neutrophils Band Neutrophils Lymphocytes Monocytes Nucleated RBCs # Platelet Estimate Hypochromasia Microcytosis ABG pH 7.397 ABG pCO2 35.8 ABG pO2 73.4 L ABG HCO3 22.4 ABG Total CO2 19.8 L ABG O2 Saturation 95.3 ABG Base Excess -2.3 POC Glucose 327 H Ammonia ABDON Screen Negative (<1:160) Hepatitis A IgM Ab Negative Hep Bs Antigen Negative Hep B Core IgM Ab Negative Hepatitis C Antibody Negative DS: Provider Date of admission: 02/14/17 11:32 Primary care physician: . No PCP Attending physician on admission: Paula Resendez MD Consults: 02/14/17 11:40 Consult to Diabetes [facility], Educator [CONS] Routine Reason for Procurement Cost Coordinator: Diabetes Education 02/14/17 11:52 Consult to Pharmacy [CONS] Routine Reason for Pharmacy Consult: Adjust Meds Renal Funct 02/14/17 13:12 Consult to Physician [CONS] Routine Comment: Consulting Provider: Franco Pearson Consulting Provider Notified: Yes When should Consulting Provider be notified: Now Consult to Specialist Group: Gastroenterology When should Consulting Provider be notified: Now Person Notified: MAURA Date Notified: 02/14/17 Time Notified: 15:44 02/15/17 12:54 Consult to Case Mgmt/Social Srvs [CONS] Routine Reason for Case Mgmt/Social Srvs: Home Health Consult Comment: [facility] dc'd pt last week, wants to reinstate 02/16/17 10:13 Consult to Physical Therapy [CONS] Routine Reason for Physical Therapy: Evaluate and Treat Discharging clinician: Silvino Montenegro CNP
[2017-02-18] MEDS ORDERED: LACTULOSE 20 GM/30 ML UDCUP PO ONE (17:44)
[2017-02-19] MEDS: methylPREDNISolone SOD SUC 40 MG/1 ML VIAL IV SCH (02:55)
[2017-02-19] MEDS: ALBUTEROL/IPRATROPIUM 3 ML NEB RESP TX SCH ×2 (03:58→07:39)
--- NOTE | 2017-02-19 06:48 | Hospitalist Progress Note ---
Assessment and Plan (1) Diabetes Status: Chronic Assessment and plan: Worsening with use of corticosteriods. Current Visit: Yes Qualifiers: Diabetes mellitus type: type 2 (2) Cirrhosis Status: Chronic Assessment and plan: Portal hypertensive gastropathy with upper GI bleeding and elevated serum ammonia levels. Hepatitis screen negative. Given the patient's body habitus this is possibly related to a chronic nonalcoholic fatty liver disorder. Current Visit: Yes Qualifiers: Hepatic cirrhosis type: unspecified hepatic cirrhosis Hospitalist: Subjective Interval history: 86 yo female remote history of blood transfusion presenting with upper GI bleeding with evidence of hepatic cirrhosis with portal hypertensive gastropathy. No further bleeding with stable hemoglobin level. She had elevated serum ammonia level which has moderated with therapy, though she has complaints of constipation. On corticosteriods capillary blood glucose level have been elevated on glipizide. She was anticipated for home treatment however appears will need some transition care before returns home. Exam - Constitutional Vitals: Period Temp Pulse Resp BP Sys/Morel Pulse Ox Last 24 Hr 97.6 F-98.6 F 78-98 14-23 117-189/57-82 94-99 General appearance: over weight - Respiratory Respiratory exam: Present: clear to auscultation bilaterally. Absent: rales, rhonchi, wheezes - Cardiovascular Cardiovascular exam: Present: regular rate and rhythm - GI/Abdominal GI/Abdominal exam: Present: normal bowel sounds. Absent: ascites, distended, tenderness - Extremities Exam Extremities exam: Absent: edema - Neurological Exam Neurological exam: Present: alert, oriented X3 Results - Labs CBC & BMP: 02/18/17 04:48 02/17/17 02:47
[2017-02-19] MEDS: SOLIFENACIN 5 MG TABLET PO SCH (08:14)
[2017-02-19] MEDS: LACTULOSE 20 GM/30 ML UDCUP PO SCH (08:14)
[2017-02-19] MEDS: glipiZIDE 10 MG TABLET PO SCH (08:15)
[2017-02-19] MEDS: amLODIPine 10 MG TABLET PO SCH (08:15)
[2017-02-19] MEDS: PANTOPRAZOLE 40 MG VIAL IV SCH (08:17)
[2017-02-19] MEDS: PROPRANOLOL 20 MG TABLET PO SCH (08:17)
[2017-02-19] MEDS: INSULIN LISPRO 100 UNIT/ML SUBCUT SCH (08:18)
--- NOTE | 2017-02-19 11:09 | Physician Query Form ---
CLICK EDIT DOCUMENT TO SELECT QUERY ANSWER --> OK --> SIGN Marie Collins RN, CCDS Certified Clinical Wildlife Photographer W) [phone] (f) [phone] [email or web address] PROVIDERS: Make your selection(s) from the choices in EACH section by typing an "x" and enter comments in the comment section. Please use your independent medical judgment in providing your response. This request does not imply that any particular answer is desired or expected. CLINICAL INDICATORS: (Providers should not edit this section) The medical record indicates that the patient was admitted with GI bleeding, on the Ammonia increased to 80#, on the : " reported she was very combative last night", "I told him that she does have dementia and it will worsen with illness and change of environment". Patient was placed on Lactulose ACUITY: ( ) Acute ( x) Acute on Chronic ( ) Chronic ( ) Clinically unable to determine NATURE: ( ) Delirium due to general medical condition ( ) Dementia ( x) Encephalopathy ( ) Hepatic Encephalopathy ( ) Unconscious ( ) Transient level of awareness ( ) Comatose ( ) Locked-in State ( ) Persistent Vegetative State ( ) Other, please specify: ( ) Clinically unable to determine Please indicate the underlying cause of the altered mental status (CHECK ALL THAT APPLY): ( ) Baseline dementia ( ) Alzheimer's disease ( ) Parkinson's disease ( ) Lewy body dementia ( ) Acute stroke ( ) Late effect of stroke ( ) Reactive (from emotional stress, psychological trauma) ( ) Due to narcotics/other drugs ( ) Post procedural delirium ( ) Transient ischemic attack ( ) Generalized cerebral edema ( ) Normal pressure hydrocephalus ( ) Psychiatric illness ( ) Other, please specify: ( ) Clinically unable to determine Please indicate if there is an infection, sepsis, dehydration or specific organ failure that is causing the dementia. Be specific with clarifying the relationship between that process and the mental status change. COMMENTS: Use of terms such as suspected, likely, or probable (associated with a specific diagnosis that is being evaluated, monitored, or treated as if it exists) are acceptable and can be restated in the discharge summary if not ruled out. MTDD
[2017-02-19 11:14] VITALS: BP 153/70
== END 2017-02-19 10:00 | disposition swing bed (61) | DRG 432 ==
LOC: EDBD → EDUNIT# → N.ED 08:13 → N.EDINP 11:32 → SUATTDRO 11:32 → N.4E 12:42
PROVIDERS: ADMIT Internal Medicine; ATTEND Internal Medicine Cardiovascular Disease